=== PATIENT | female | born 1940 | race African-American/Black ===

== ENCOUNTER 2017-12-26 02:39 | Observation (INO) ==
[2017-12-26 03:02] LABS: Basophils # 0.1 10*3/uL (0.0-0.2); Basophils % 0.5 % (0.0-0.8); Eosinophils % 0.1 % (0.00-10.9); Hematocrit 46.6 VOL% (35.7-47.0); Hemoglobin 15.3 GM/DL (12.0-16.0); Immature Granulocytes % 0.4 %; Immature Granulocytes Absolute 0.04 #; Lymphocytes # 1.5 10*3/uL (1.4-4.0); Lymphocytes % 15.2 % (21.3-54.2); Mean Corpuscular HGB Conc 32.8 GM/DL (32-36); Mean Corpuscular Hemoglobin 29 PG (27-34); Mean Corpuscular Volume 89.4 FL (87-102); Monocytes # 0.6 10*3/uL (0.11-0.8); Monocytes % 5.8 % (1.7-12.7); Neutrophils # 7.8 10*3/uL (1.4-7.4); Platelet Count 157 T/CUMM (130-400); Red Blood Count 5.21 MC/CUMM (3.8-5.5); Red Cell Distribution Width 13.1 % (9.3-17.3); White Blood Count 10.1 T/CUMM (4-12)
[2017-12-26 03:27] LABS: Bilirubin,Total 1.1 MG/DL (0.2-1.0); Calcium 9.3 MG/DL (8.5-10.1); Osmolality,Calculated 285.3 MOS/KG (273-304); Potassium 3.6 MMOL/L (3.5-5.1); Total Protein 8.1 G/DL (6.4-8.3)
[2017-12-26 03:28] LABS: Troponin I Only 0.079 NG/ML (0.00-0.045)
[2017-12-26 04:49] LABS: INR 1.2; PT Patient Result 12.7 SECS; Partial Thromboplastin Time 28.2 SECS (0-40)
[2017-12-26] MEDS ORDERED: LABETALOL 20 MG/4 ML SYRINGE IV STA (05:04)
[2017-12-26] MEDS ORDERED: LABETALOL 20 MG/4 ML SYRINGE IV ONE (05:07)
[2017-12-26] MEDS ORDERED: cloNIDine 0.1 MG TABLET PO ONE (05:30)
[2017-12-26] MEDS ORDERED: FUROSEMIDE 40 MG/4 ML VIAL IV ONE (05:30)
[2017-12-26] MEDS ORDERED: DEXTROSE 50% 25 GM/50 ML VIAL IV PRN ×2 (06:33→07:02)
[2017-12-26] MEDS ORDERED: GLUCAGON 1 MG VIAL IM PRN ×2 (06:33→07:02)
[2017-12-26] MEDS ORDERED: MORPHINE 2 MG/1 ML SYRINGE IV PRN (07:02)
[2017-12-26] MEDS ORDERED: cloNIDine 0.1 MG TABLET PO PRN (07:02)
[2017-12-26] MEDS ORDERED: ONDANSETRON 4 MG/2 ML VIAL IV PRN (07:02)
[2017-12-26] MEDS ORDERED: ACETAMINOPHEN 325 MG TABLET PO PRN ×2 (07:02→14:55)
[2017-12-26] MEDS ORDERED: FUROSEMIDE 40 MG/4 ML VIAL ONE (07:14)
[2017-12-26] MEDS ORDERED: cloNIDine 0.1 MG TABLET ONE (07:14)
[2017-12-26 07:23] LABS: VLDL CHOLESTEROL 27.2 MG/DL
[2017-12-26] MEDS: INSULIN LISPRO 100 UNIT/ML SUBCUT SCH ×2 (08:02→11:51)
[2017-12-26] MEDS ORDERED: DOCUSATE SODIUM 100 MG CAPSULE ONE (08:31)
[2017-12-26] MEDS ORDERED: ASPIRIN CHEW 81 MG TABLET PO ONE (08:32)
[2017-12-26] MEDS ORDERED: PANTOPRAZOLE 40 MG TABLET PO ONE (08:32)
[2017-12-26] MEDS ORDERED: CARVEDILOL 3.125 MG TABLET ONE (08:32)
[2017-12-26] MEDS: DOCUSATE SODIUM 100 MG CAPSULE PO SCH ×2 (08:55→21:51)
[2017-12-26] MEDS: PANTOPRAZOLE 40 MG TABLET PO SCH (08:56)
[2017-12-26] MEDS: ASPIRIN CHEW 81 MG TABLET PO SCH (08:56)
[2017-12-26] MEDS ORDERED: CARVEDILOL 6.25 MG TABLET PO SCH (09:00)
[2017-12-26] MEDS ORDERED: CARVEDILOL 12.5 MG TABLET PO SCH ×2 (09:00→09:07)
[2017-12-26] MEDS ORDERED: DIGOXIN 0.25 MG TABLET PO STA (09:05)
[2017-12-26] MEDS ORDERED: DIGOXIN 0.125 MG TABLET ONE (09:28)
[2017-12-26] MEDS ORDERED: DIGOXIN 0.125 MG TABLET PO STA (09:31)
[2017-12-26] MEDS ORDERED: WARFARIN 5 MG TABLET PO SCH (12:00)
[2017-12-26] MEDS ORDERED: FUROSEMIDE 40 MG/4 ML VIAL IV SCH (12:00)
[2017-12-26] MEDS ORDERED: WARFARIN 5 MG TABLET ONE (12:08)
[2017-12-26] MEDS: INSULIN REGULAR 100 UNIT/ML SUBCUT SCH ×3 (14:10→21:47)
[2017-12-26] MEDS: METOPROLOL TARTRATE 100 MG TABLET PO SCH ×2 (17:04→21:51)
[2017-12-26] MEDS ORDERED: WARFARIN 2.5 MG TABLET PO SCH (18:00)
[2017-12-26] MEDS: DILTIAZEM CD 240 MG CAPSULE PO SCH (21:51)
[2017-12-27 06:05] LABS: INR 1.8; PT Patient Result 18.2 SECS
[2017-12-27 07:41] VITALS: BP 117/70
[2017-12-27] MEDS: INSULIN REGULAR 100 UNIT/ML SUBCUT SCH (08:15)
[2017-12-27 08:22] LABS: Basophils # 0.1 10*3/uL (0.0-0.2); Basophils % 0.7 % (0.0-0.8); Eosinophils % 0.4 % (0.00-10.9); Hematocrit 44.6 VOL% (35.7-47.0); Hemoglobin 14.8 GM/DL (12.0-16.0); Immature Granulocytes % 0.3 %; Immature Granulocytes Absolute 0.02 #; Lymphocytes # 1.8 10*3/uL (1.4-4.0); Lymphocytes % 25.7 % (21.3-54.2); Mean Corpuscular HGB Conc 33.2 GM/DL (32-36); Mean Corpuscular Hemoglobin 30 PG (27-34); Mean Corpuscular Volume 88.8 FL (87-102); Mean Platelet Volume 13.5 FL (9.6-12.0); Monocytes # 0.6 10*3/uL (0.11-0.8); Neutrophils # 4.5 10*3/uL (1.4-7.4); Neutrophils % 63.9 % (38.7-73.9); Platelet Count 145 T/CUMM (130-400); Red Blood Count 5.02 MC/CUMM (3.8-5.5); Red Cell Distribution Width 13.2 % (9.3-17.3)
[2017-12-27 08:32] LABS: Calcium 9.1 MG/DL (8.5-10.1); Potassium 2.9 MMOL/L (3.5-5.1)
[2017-12-27] MEDS: DILTIAZEM CD 240 MG CAPSULE PO SCH (08:53)
[2017-12-27] MEDS: DOCUSATE SODIUM 100 MG CAPSULE PO SCH (08:53)
[2017-12-27] MEDS: METOPROLOL TARTRATE 100 MG TABLET PO SCH (08:53)
[2017-12-27] MEDS: PANTOPRAZOLE 40 MG TABLET PO SCH (08:53)
[2017-12-27] MEDS: ASPIRIN CHEW 81 MG TABLET PO SCH (08:54)
[2017-12-27] MEDS ORDERED: FUROSEMIDE 40 MG TABLET PO SCH (09:00)
[2017-12-27] MEDS ORDERED: DIGOXIN 0.125 MG TABLET PO ONE (09:00)
[2017-12-27] MEDS ORDERED: LOSARTAN 50 MG TABLET PO SCH (09:00)
[2017-12-27] MEDS ORDERED: SACUBITRIL/VALSARTAN 49-51 MG TABLET PO SCH (09:00)
[2017-12-27] MEDS ORDERED: WARFARIN 5 MG TABLET PO SCH (18:00)
== END 2017-12-27 11:37 | disposition home or self-care (01) ==
LOC: EDBD → EDUNIT# → N.EDINP 02:39 → N.ED 02:39 → N.EDINP 13:22 → N.5E 14:03
PROVIDERS: ADMIT Internal Medicine Cardiovascular Disease; ATTEND Internal Medicine Cardiovascular Disease

== ENCOUNTER 2021-05-31 19:33 | Observation (INO) ==
[2021-06-01] MEDS ORDERED: cloNIDine 0.1 MG TABLET PO STA (00:47)
[2021-06-01] MEDS ORDERED: cloNIDine 0.1 MG TABLET ONE (00:48)
[2021-06-01] MEDS ORDERED: GLUCAGON 1 MG VIAL IM PRN ×2 (04:40→04:51)
[2021-06-01] MEDS ORDERED: DEXTROSE 50% 25 GM/50 ML VIAL IV PRN ×2 (04:40→04:51)
[2021-06-01] MEDS ORDERED: ACETAMINOPHEN 325 MG TABLET PO PRN (04:51)
[2021-06-01] MEDS ORDERED: DOCUSATE SODIUM 100 MG CAPSULE PO PRN (04:51)
[2021-06-01] MEDS ORDERED: ONDANSETRON 4 MG/2 ML VIAL IV PRN (04:51)
[2021-06-01] MEDS ORDERED: cloNIDine 0.1 MG TABLET PO PRN (05:36)
[2021-06-01 06:40] LABS: Albumin 3.8 G/DL (3.4-5.0); Bilirubin,Total 1.9 MG/DL (0.20-1.00); Calcium 9.1 MG/DL (8.5-10.1); Osmolality,Calculated 275.7 MOS/KG (273-304); Potassium 3.1 MMOL/L (3.5-5.1); Risk Ratio 3.81; Thyroid Stimulating Hormone 1.76 uIU/ml (0.358-3.74); Total Protein 7.8 G/DL (6.4-8.2); VLDL Cholesterol 18.2 MG/DL
[2021-06-01] MEDS: INSULIN LISPRO 100 UNIT/ML SUBCUT SCH ×4 (08:32→21:47)
[2021-06-01 09:15] LABS: Basophils % 0.5 % (0.0-0.8); Eosinophils % 0.3 % (0.00-10.9); Hematocrit 45.3 VOL% (35.7-47.0); Hemoglobin 15.1 GM/DL (12.0-16.0); Immature Granulocytes % 0.3 %; Immature Granulocytes Absolute 0.02 #; Lymphocytes # 1.4 10*3/uL (1.4-4.0); Lymphocytes % 19.4 % (21.3-54.2); Mean Corpuscular HGB Conc 33.3 GM/DL (32-36); Mean Corpuscular Volume 86.9 FL (87-102); Mean Platelet Volume 12.6 FL (9.6-12.0); Monocytes % 7.1 % (1.7-12.7); Neutrophils % 72.4 % (38.7-73.9); Platelet Count 181 T/CUMM (130-400); Red Blood Count 5.21 MC/CUMM (3.8-5.5); Red Cell Distribution Width 13.3 % (9.3-17.3); White Blood Count 7.3 T/CUMM (4-12)
[2021-06-01] MEDS ORDERED: POTASSIUM CHLORIDE 20 MEQ PACK PO ONE (09:27)
[2021-06-01] MEDS ORDERED: MAGNESIUM SULF RIDER 4 GM/100 ML PREMIX IV ONE (09:27)
[2021-06-01] MEDS: FLUTICASONE 50 MCG NASAL SPRAY 16 GM BOTTLE BOTH NARES SCH ×2 (10:04→21:57)
[2021-06-01] MEDS: METOPROLOL TARTRATE 100 MG TABLET PO SCH ×2 (13:09→21:56)
[2021-06-01 13:27] LABS: INR 1.8; PT Patient Result 19.8 SECS (10.5-12.0)
[2021-06-01] MEDS ORDERED: WARFARIN 5 MG TABLET PO ONE (20:01)
[2021-06-01] MEDS: DILTIAZEM CD 240 MG CAPSULE PO SCH (21:55)
[2021-06-02 07:11] LABS: Basophils % 0.3 % (0.0-0.8); Eosinophils % 0.4 % (0.00-10.9); Hemoglobin 14.5 GM/DL (12.0-16.0); Immature Granulocytes % 0.3 %; Immature Granulocytes Absolute 0.02 #; Lymphocytes # 1.6 10*3/uL (1.4-4.0); Lymphocytes % 19.8 % (21.3-54.2); Mean Corpuscular HGB Conc 33.7 GM/DL (32-36); Mean Corpuscular Volume 86.9 FL (87-102); Mean Platelet Volume 13.1 FL (9.6-12.0); Monocytes % 10.6 % (1.7-12.7); Neutrophils % 68.6 % (38.7-73.9); Platelet Count 139 T/CUMM (130-400); Red Blood Count 4.95 MC/CUMM (3.8-5.5); Red Cell Distribution Width 13.5 % (9.3-17.3); White Blood Count 7.9 T/CUMM (4-12)
[2021-06-02 07:14] LABS: INR 1.8; PT Patient Result 19.3 SECS (10.5-12.0)
[2021-06-02 07:44] LABS: Calcium 8.5 MG/DL (8.5-10.1); Osmolality,Calculated 281.3 MOS/KG (273-304); Potassium 2.8 MMOL/L (3.5-5.1)
[2021-06-02] MEDS ORDERED: POTASSIUM CHLORIDE 20 MEQ PACK PO SCH (08:30)
[2021-06-02] MEDS: INSULIN LISPRO 100 UNIT/ML SUBCUT SCH ×2 (08:57→15:16)
[2021-06-02] MEDS ORDERED: FUROSEMIDE 40 MG TABLET PO SCH (09:00)
[2021-06-02] MEDS ORDERED: LOSARTAN 50 MG TABLET PO SCH (09:00)
[2021-06-02] MEDS: METOPROLOL TARTRATE 100 MG TABLET PO SCH (09:00)
[2021-06-02] MEDS: DILTIAZEM CD 240 MG CAPSULE PO SCH (09:00)
[2021-06-02] MEDS ORDERED: POTASSIUM CHLORIDE 20 MEQ TABLET PO SCH ×2 (09:00)
[2021-06-02] MEDS: FLUTICASONE 50 MCG NASAL SPRAY 16 GM BOTTLE BOTH NARES SCH (09:01)
[2021-06-02] MEDS ORDERED: POTASSIUM CHLORIDE 20 MEQ PACK PO ONE (13:52)
[2021-06-02 16:31] VITALS: BP 136/76
[2021-06-02] MEDS ORDERED: WARFARIN 5 MG TABLET PO SCH (17:00)
== END 2021-06-02 16:07 | disposition home or self-care (01) ==
LOC: EDUNIT# → EDBD → N.ED 19:33 → N.EDINP 19:33 → N.TELEN 06-01 07:39
PROVIDERS: ADMIT Internal Medicine; ATTEND Internal Medicine